=== PATIENT | female | born 1990 | race Caucasian/White ===

== ENCOUNTER 2018-05-05 14:32 | Outpatient (CLI) | payer OTHER ==
[~2018-05-05] VITALS: Ht 165.1 cm; Wt 87.7 kg
--- NOTE | 2018-05-05 14:35 | NUR ---
1435- Pt arrives on unit ambulatory with complaints of headache, dizziness, and "almost passed out at work." Pt changes into gown. 1441- Pt into bed, EFM and TOCO on and tracing. Assessment completed. VSS. 1548- Discharge plan explained. EFM and TOCO off. Pt up to change into street clothes. 1610- Discharge paperwork given and explained. Questions answered. Pt ambulates off unit in stable condition.
[2018-05-05] MEDS ORDERED: TYLENOL PM EXTR1 TA1 PO (15:31)
[2018-05-05] MEDS ORDERED: CONCEPT OB PO (15:31)
== END 2018-05-05 16:10 | disposition home or self-care (01) ==
LOC: LDRO 14:32
DX: O26.813 Pregnancy related exhaustion and fatigue, third trimester (principal); Z3A.29 29 weeks gestation of pregnancy

== ENCOUNTER 2018-05-13 21:35 | Outpatient (CLI) | payer OTHER ==
[~2018-05-13] VITALS: Ht 165.1 cm; Wt 86.8 kg
[~2018-05-13 21:35] MED LIST: CONCEPT OB PO; TYLENOL PM EXTR1 TA1 PO
--- NOTE | 2018-05-13 21:50 | NUR ---
Pt arrived on unit with concern for decreased movement. Pt denies any contractions, leaking of fluid and/or vaginal bleeding. EFM and toco monitors placed. Vital signs WNL. Orders for assessment received.
[2018-05-13 21:59] VITALS: BP 113/75; PULSE 104; TEMP 98.3
--- NOTE | 2018-05-13 22:35 | NUR ---
Spoke with Dr. Busch for an update on pt's status with FHR tracing and movement both audible and felt by pt discussed. Orders for discharge home received. Information and instructions for discharge reviewed with pt. Pt verbalized an understanding and agrees with the plan.
== END 2018-05-13 22:45 | disposition home or self-care (01) ==
LOC: LDRO 21:35
DX: O36.8130 Decreased fetal movements, third trimester, not applicable or unspecified (principal); Z3A.30 30 weeks gestation of pregnancy

== ENCOUNTER 2018-07-12 05:25 | Inpatient (IN) | payer OTHER ==
[~2018-07-12] VITALS: Ht 165.2 cm; Wt 94.1 kg
[2018-07-12] VITALS (19 sets, daily range): BP systolic 93–121; BP diastolic 60–75; PULSE 65–96; TEMP 97.9–98.2
--- NOTE | 2018-07-12 05:30 | NUR ---
[id number]. 39.1. Ambulatory to room 210 for scheduled . Clean gown on. EFM and TOCO explained and applied. Pt denies contractions, LOF or vaginal bleeding. Reports good movement. Consents explained and signed. IV started and labs drawn via IV site. LR bolus infusing without difficulties. Plan of care explained and call light within reach.
[2018-07-12 06:30] LABS: BASO % 0.3 % (0.0-2.0); EOS # 0.1 (0.0-0.7); EOS % 0.9 % (0-4.0); GRAN % 67.1 % (42.2-75.2); HEMATOCRIT 38.4 % (37.0-47.0); HEMOGLOBIN 12.9 g/dl (12.5-16.0); LYMPH # 2.6 (1.2-3.4); LYMPH % 21.4 % (20.0-51.0); MEAN CELL VOLUME 93 fl (80.0-100.0); MEAN CORPUSCULAR HEMOGLOBIN 31 pg (27.0-31.0); MEAN CORPUSCULAR HGB CONC 34 g/dl (33.0-37.0); MEAN PLATELET VOLUME 12.6 fl (7.4-10.4); MONO # 1.1 (0.1-0.6); MONO % 9.4 % (1.7-9.3); PLATELET COUNT 184 K/mm3 (130-400); RED BLOOD COUNT 4.15 M/mm3 (4.10-5.30); REDCELL DISTRIBUTION WIDTH-CV 14.4 % (11.5-14.5)
[2018-07-12] MEDS ORDERED: CLARITIN 1010 MG/TAB (06:46)
--- NOTE | 2018-07-12 07:15 | NUR ---
Dr. Wetzel at bedside, bedside sono performed, breech presentation confirmed.
--- NOTE | 2018-07-12 07:20 | NUR ---
Patient ambulatory to OR. Her friend is with her for support.
--- NOTE | 2018-07-12 10:45 | NUR ---
Patient c/o shaking and request medication. PACU order for Demerol is discontinued. Dr. Wetzel called and updated. Per Dr. Wetzel its okay to use the previous order. See eMAR.
[2018-07-13 02:00] VITALS: BP 112/69; PULSE 69; TEMP 97.8
--- NOTE | 2018-07-13 07:00 | NUR ---
0745 Rests in bed, alert. Eating breakfast.
[2018-07-13 07:28] LABS: HEMATOCRIT 33.5 % (37.0-47.0); HEMOGLOBIN 10.9 g/dl (12.5-16.0)
[2018-07-13 08:00] VITALS: BP 93/55; PULSE 73; TEMP 98.1
--- NOTE | 2018-07-13 08:00 | NUR ---
Rests in bed, alert. Ibuprofen 600 mg. one given as ordered. Denies any other needs. Dr. Wetzel here, visits with patient.
[2018-07-13] MEDS ORDERED: IBU600 MG PO (08:09)
[2018-07-13] MEDS ORDERED: PERCOCET 325 MG1 TA2 PO (08:09)
--- NOTE | 2018-07-13 10:55 | NUR ---
Rests in bed, alert. Request pain medication. Percocet 5/325 mg two given as ordered and per request.
--- NOTE | 2018-07-13 12:00 | NUR ---
Rests in bed, alert. Denies any needs at this time.
--- NOTE | 2018-07-13 13:42 | NUR ---
Initial visit; Patient thanked Inspector Assembly for offering congratulations and blessings for the of her daughter and for thanking her for choosing [facility].
--- NOTE | 2018-07-13 14:00 | NUR ---
Rests in bed, alert. Denies any needs at this time.
[2018-07-13 15:15] VITALS: BP 97/62; PULSE 69; TEMP 97.5
--- NOTE | 2018-07-13 15:15 | NUR ---
Rests in bed, alert. Request pain medication. 1525 Ibuprofen 600 mg, percocet 5/325 mg one given per request and as ordered.
[2018-07-13 19:00] VITALS: BP 111/59; PULSE 80; TEMP 98
[2018-07-14 07:50] VITALS: BP 106/62; PULSE 71; TEMP 98
== END 2018-07-14 11:55 | disposition home or self-care (01) | DRG 788 ==
LOC: OB 05:25 → LDR 07:06 → OB 07-14 11:55
PROVIDERS: ADMIT Obstetrics & Gynecology
PROC: 10D00Z1 Extraction of Products of Conception, Low, Open Approach (ICD-10-PCS; principal; 2018-07-12)
DX: O32.1XX0 Maternal care for breech presentation, not applicable or unspecified (principal); O99.613 Diseases of the digestive system complicating pregnancy, third trimester; K92.9 Disease of digestive system, unspecified; K21.9 Gastro-esophageal reflux disease without esophagitis; O99.52 Diseases of the respiratory system complicating childbirth; Q51.28 Other and unspecified doubling of uterus; J45.909 Unspecified asthma, uncomplicated; O62.2 Other uterine inertia; O99.344 Other mental disorders complicating childbirth; F41.9 Anxiety disorder, unspecified; Z3A.39 39 weeks gestation of pregnancy; Z37.0 Single live birth
CPT/HCPCS: J0690; J1885; J2175; J2210; J2270; J2370; J2405; J2590; J7120